=== PATIENT | female | born 1980 | race Caucasian/White ===

== ENCOUNTER 2023-08-20 11:41 | Emergency (ER) | payer BC, OTHER ==
[2023-08-20 11:59] VITALS: BP 122/77; PULSE 70; RESP 16; TEMP 98.7; BMI 29.7
[2023-08-20] MEDS ORDERED: RABIES VACCINE (PCEC)/PF 2.5 UNIT/VIAL IM ONE (12:51)
[2023-08-20] MEDS ORDERED: RABIES IMMUNE GLOBULIN/PF 300 UNIT/ML (5 ML) VIAL IM ONE (12:51)
[2023-08-20] MEDS: RABIES IMMUNE GLOBULIN 300 UNITS/1 ML VIAL IM ONE (13:00)
[2023-08-20] MEDS: RABIES VACCINE (PCEC)/PF 2.5 UNIT/VIAL IM ONE (13:09)
== END 2023-08-20 13:30 | disposition home or self-care (01) ==
LOC: FER 11:41
PROC: 3E0234Z Introduction of Serum, Toxoid and Vaccine into Muscle, Percutaneous Approach (ICD-10-PCS; principal; 2023-08-20)
DX: Z20.3 Contact with and (suspected) exposure to rabies (principal)
CPT/HCPCS: 90375; 90675; 99284-25

== ENCOUNTER 2023-08-23 16:52 | Emergency (ER) | payer BC ==
[2023-08-23 17:08] VITALS: BP 120/53; PULSE 63; RESP 18; TEMP 98.7; BMI 29.7
[2023-08-23] MEDS ORDERED: RABIES VACCINE (PCEC)/PF 2.5 UNIT/VIAL IM ONE (17:09)
[2023-08-23] MEDS: RABIES VACCINE (PCEC)/PF 2.5 UNIT/VIAL IM ONE (17:15)
== END 2023-08-23 17:30 | disposition home or self-care (01) ==
LOC: FER 16:52
PROC: 3E0234Z Introduction of Serum, Toxoid and Vaccine into Muscle, Percutaneous Approach (ICD-10-PCS; principal; 2023-08-23)
DX: Z29.14 Encounter for prophylactic rabies immune globulin (principal)
CPT/HCPCS: 90675; 99281-25

== ENCOUNTER 2023-08-27 17:07 | Emergency (ER) | payer BC ==
[2023-08-27] MEDS ORDERED: RABIES VACCINE (PCEC)/PF 2.5 UNIT/VIAL IM ONE (17:39)
[2023-08-27 17:47] VITALS: BP 128/72; PULSE 79; RESP 20; TEMP 98.3; BMI 27.4
[2023-08-27] MEDS: RABIES VACCINE (PCEC)/PF 2.5 UNIT/VIAL IM ONE (17:47)
== END 2023-08-27 17:57 | disposition home or self-care (01) ==
LOC: FER 17:07
PROC: 3E0234Z Introduction of Serum, Toxoid and Vaccine into Muscle, Percutaneous Approach (ICD-10-PCS; principal; 2023-08-27)
DX: Z29.14 Encounter for prophylactic rabies immune globulin (principal)
CPT/HCPCS: 90675; 99281-25

== ENCOUNTER 2023-09-03 16:52 | Emergency (ER) | payer BC ==
[2023-09-03 17:20] VITALS: BP 123/81; PULSE 81; RESP 20; TEMP 98.3; BMI 29.1
[2023-09-03] MEDS ORDERED: RABIES VACCINE (PCEC)/PF 2.5 UNIT/VIAL IM ONE ×2 (17:22→17:25)
[2023-09-03] MEDS: RABIES VACCINE (PCEC)/PF 2.5 UNIT/VIAL IM ONE (17:30)
== END 2023-09-03 17:36 | disposition home or self-care (01) ==
LOC: FER 16:52
PROC: 3E0234Z Introduction of Serum, Toxoid and Vaccine into Muscle, Percutaneous Approach (ICD-10-PCS; principal; 2023-09-03)
DX: Z29.14 Encounter for prophylactic rabies immune globulin (principal)
CPT/HCPCS: 90675; 99282-25